=== PATIENT | male | born 1955 | race Caucasian/White ===

== ENCOUNTER 2018-07-03 00:11 | Outpatient (CLI) | payer BC, SELFPAY ==
--- NOTE | 2018-07-03 08:05 | DI.RAD_ITS ---
SYMPTOM/DIAGNOSIS: CALCIUM OXALATE MONO, N20.0 KUB: Comparison is made with 05/03/14. There are several stones seen in the lower half of the left kidney consistent with nephrolithiasis. The right kidney is largely obscured by overlying bowel. No other renal stones are present. There are phleboliths seen in the pelvis. No calcifications are seen along the expected course of the ureters. There is a moderate amount of retained stool throughout the colon. Degenerative changes are seen in the spine. Calcification projected between the 11th and 12th ribs medially on the left is consistent with a left adrenal calcification seen on the CT scan from 05/03/13. IMPRESSION: Left nephrolithiasis.
== END 2018-07-03 00:31 ==
PROVIDERS: PCP Family Medicine; Visit Provider Urology
DX: N20.0 Calculus of kidney (principal)
CPT/HCPCS: 74018

== ENCOUNTER 2018-07-04 08:41 | Outpatient (CLI) | payer BC, SELFPAY ==
[2018-07-05 10:58] LABS: PSA, Screening 1.8 ng/ml (0-4.5)
== END 2018-07-04 09:01 ==
PROVIDERS: PCP Family Medicine; Visit Provider Urology
DX: Z12.5 Encounter for screening for malignant neoplasm of prostate (principal)
CPT/HCPCS: 36415; 84153

== ENCOUNTER 2018-10-04 11:22 | Outpatient (CLI) | payer BC, SELFPAY ==
[2018-10-04 12:18] LABS: ALT 46 U/L (12-78); AST 24 U/L (15-37); Albumin 4.1 g/dL (3.4-5.0); Alkaline Phosphatase 114 U/L (46-116); Anion Gap 9.9 mmol/L (3-11); BUN 23 mg/dL (7-18); Bilirubin, Total 0.6 mg/dL (0.2-1.0); CO2 27.1 mmol/L (21.0-32.0); CREATININE 1.26 mg/dL (0.70-1.30); Chloride 102 mmol/L (98-107); Cholesterol 170 mg/dL (50-200); Estimated GFR 57.62 (mL/min/1.73m2); Glucose 96 mg/dL (70-100); HDL Cholesterol 48 mg/dL (40-60); LDL CHOLESTEROL 104 mg/dL (<100); Potassium 4.7 mmol/L (3.5-5.1); Sodium 139 mmol/L (136-145); Total Protein 7.2 g/dL (6.4-8.2); Triglyceride 95 mg/dL (30-150)
== END 2018-10-04 11:42 ==
PROVIDERS: PCP Family Medicine; Visit Provider Family Medicine
DX: E78.5 Hyperlipidemia, unspecified (principal)
CPT/HCPCS: 36415; 80053; 80061; 83721

== ENCOUNTER → 2019-07-03 08:18 | Outpatient (BNVA) | payer MEDICARE, OTHER, SELFPAY | PROVIDERS: PCP Family Medicine; Referring Provider Family Medicine; Visit Provider Urology | DX: R69 Illness, unspecified ==

== ENCOUNTER 2019-07-03 15:07 | Outpatient (CLI) | payer OTHER, SELFPAY ==
--- NOTE | 2019-07-03 09:14 | DI.RAD_ITS ---
EXAM: XR ABDOMEN FLAT PLATE INDICATION: monitor stone burden, kidney stones, calcium oxalate monohydrate, N20.0. COMPARISON: No exams were available for comparison TECHNIQUE: 2D digital imaging was performed. FINDINGS: There are 2 stones visible at the lower pole of the left kidney, unchanged from the previous exam of 03 July 2018. No new calcifications are seen. The bowel gas pattern is unremarkable. IMPRESSION: Stable left nephrolithiasis.
== END 2019-07-03 15:27 ==
PROVIDERS: PCP Family Medicine; Visit Provider Urology
DX: N20.0 Calculus of kidney (principal)
CPT/HCPCS: 99213; 74018

== ENCOUNTER 2020-01-07 07:23 | Outpatient (CLI) | payer OTHER, SELFPAY ==
[2020-01-11 20:11] LABS: SARS-CoV-2 RNA Undetected (Undetected); SARS-CoV-2 Specimen Source Nasopharynx
== END 2020-01-07 07:43 ==
PROVIDERS: PCP Family Medicine; Visit Provider Family Medicine
DX: Z11.59 Encounter for screening for other viral diseases (principal)
CPT/HCPCS: U0003

== ENCOUNTER 2020-01-10 02:46 | Outpatient (CLI) | payer OTHER, SELFPAY ==
[2020-01-10 14:22] LABS: ALT 41 U/L (16-63); AST 27 U/L (15-37); Albumin 4.4 g/dL (3.4-5.0); Alkaline Phosphatase 103 U/L (46-116); Anion Gap 11.5 mmol/L (3-11); BUN 25 mg/dL (7-18); Bilirubin, Total 0.6 mg/dL (0.2-1.0); CO2 25.5 mmol/L (21.0-32.0); CREATININE 1.31 mg/dL (0.70-1.30); Calcium 9.5 mg/dL (8.5-10.1); Chloride 102 mmol/L (98-107); Estimated GFR 54.91 (mL/min/1.73m2); Glucose 101 mg/dL (74-106); Potassium 4.9 mmol/L (3.5-5.1); Sodium 139 mmol/L (136-145); Total Protein 7.4 g/dL (6.4-8.2)
== END 2020-01-10 03:06 ==
PROVIDERS: PCP Family Medicine; Visit Provider Family Medicine
DX: E78.5 Hyperlipidemia, unspecified (principal)
CPT/HCPCS: 36415; 80053

== ENCOUNTER 2020-03-11 07:23 | Outpatient (CLI) | payer OTHER, SELFPAY ==
[2020-03-13 15:18] LABS: Patient Race White; SARS-CoV-2 RNA Undetected (Undetected); SARS-CoV-2 Specimen Source Nasopharynx
== END 2020-03-11 07:43 ==
PROVIDERS: PCP Family Medicine; Visit Provider Family Medicine
DX: Z11.59 Encounter for screening for other viral diseases (principal)
CPT/HCPCS: U0003

== ENCOUNTER 2020-08-06 01:58 | Outpatient (CLI) | payer OTHER, SELFPAY ==
--- NOTE | 2020-08-06 09:14 | DI.RAD_ITS ---
EXAM: 2D digital imaging was performed. CLINICAL HISTORY: f/u kidney stone, n20.0. COMPARISON: CT ABD PELVIS WITH CONTRAST from 05/03/2013 CT ABD PELVIS WITH CONTRAST from 05/03/2013 CR XR ABDOMEN FLAT PLATE from 07/03/2019 TECHNIQUE: Supine views of the abdomen performed. FINDINGS: BOWEL GAS PATTERN: Nondistended. CALCIFICATIONS: Calcifications projected both the upper and lower pole the left kidney. The right ki dney is partially obscured by the colon. OSSEOUS STRUCTURES: Degenerative disc changes. Degenerative changes of the hips, left greater than r ight. No organomegaly. IMPRESSION: 1. Nonobstructive bowel gas pattern. 2. Multiple stones left kidney. DATA REPOSITORY: RADIATION DOSE DELIVERED:
== END 2020-08-06 01:59 ==
PROVIDERS: PCP Family Medicine; Visit Provider Urology
DX: N20.0 Calculus of kidney (principal)
CPT/HCPCS: 74018

== ENCOUNTER 2021-01-27 11:58 | Outpatient (REF) | payer OTHER, SELFPAY ==
[2021-01-28 15:31] LABS: COVID-19 RT-PCR UVMMC Result Negative (Negative)
== END 2021-01-27 11:59 | disposition home or self-care (01) ==
LOC: NCHCN 11:58
PROVIDERS: PCP Family Medicine; Visit Provider Nurse Practitioner Family
DX: Z20.822 Contact with and (suspected) exposure to COVID-19 (principal)
CPT/HCPCS: U0003

== ENCOUNTER 2021-02-20 02:41 | Outpatient (CLI) | payer OTHER, SELFPAY ==
[2021-02-20 09:55] LABS: ALT 45 U/L (16-63); AST 23 U/L (15-37); Albumin 4.4 g/dL (3.4-5.0); Alkaline Phosphatase 109 U/L (46-116); Anion Gap 9.6 mmol/L (3-11); BUN 20 mg/dL (7-18); Bilirubin, Total 0.4 mg/dL (0.2-1.0); CO2 26.4 mmol/L (21.0-32.0); CREATININE 1.3 mg/dL (0.70-1.30); Calculated LDL 117 mg/dL (<100); Chloride 105 mmol/L (98-107); Cholesterol 184 mg/dL (<200); Estimated GFR 55.06 (mL/min/1.73m2); Glucose 118 mg/dL (74-106); HDL Cholesterol 48 mg/dL (40-60); Potassium 4.7 mmol/L (3.5-5.1); Sodium 141 mmol/L (136-145); Total Protein 7.2 g/dL (6.4-8.2); Triglyceride 98 mg/dL (<150)
[2021-02-20 10:07] LABS: Uric Acid 7.9 mg/dL (3.5-7.2)
[2021-02-23 11:20] LABS: HIV-1/2 Ag & Ab Screen Negative (Negative)
[2021-02-23 11:28] LABS: Hepatitis C Ab w Rflx HCV PCR Negative (Negative)
== END 2021-02-20 02:42 | disposition home or self-care (01) ==
LOC: LBO 02:42
PROVIDERS: PCP Family Medicine; Visit Provider Family Medicine
DX: M10.9 Gout, unspecified; E78.5 Hyperlipidemia, unspecified; N18.9 Chronic kidney disease, unspecified; Z11.3 Encounter for screening for infections with a predominantly sexual mode of transmission
CPT/HCPCS: 36415; 80053; 80061; 86803; 87389; 84550

== ENCOUNTER 2021-08-03 01:29 | Outpatient (CLI) | payer MEDICARE, SELFPAY ==
--- NOTE | 2021-08-03 07:00 | DI.RAD_ITS ---
Exam(s) XR ABDOMEN FLAT PLATE EXAM: XR ABDOMEN FLAT PLATE CLINICAL HISTORY: monitoring kidney stones,h/o renal calculi,z87.442. TECHNIQUE: 2D digital imaging was performed. COMPARISON: CR XR ABDOMEN FLAT PLATE from 08/06/2020 FINDINGS: Bowel gas pattern is nonspecific. Previously described left renal calculi are again noted and appear unchanged in size and position. There appears to be a possible tiny calculus in the opposite-right kidney. There are no obvious radiopaque calculi seen along the course of the ureters. Phleboliths are again noted in the both sides of pelvis. IMPRESSION: Multiple stable appearing calculi in left kidney. Possible tiny calculus in the right kidney. No obvious radiopaque calculi seen in the ureters. DATA REPOSITORY: RADIATION DOSE DELIVERED:
== END 2021-08-03 01:49 ==
PROVIDERS: PCP Family Medicine; Visit Provider Nurse Practitioner Gerontology
DX: N20.0 Calculus of kidney (principal); Z87.442 Personal history of urinary calculi
CPT/HCPCS: 74018

== ENCOUNTER → 2021-08-27 13:30 | Outpatient (BNVA) | payer MEDICARE, SELFPAY | PROVIDERS: PCP Family Medicine; Referring Provider Family Medicine; Visit Provider Nurse Practitioner Gerontology | DX: N40.0 Benign prostatic hyperplasia without lower urinary tract symptoms (principal); N20.0 Calculus of kidney | CPT/HCPCS: 99213 ==

== ENCOUNTER 2022-02-18 03:27 | Outpatient (CLI) | payer MEDICARE, SELFPAY ==
[2022-02-18 12:17] LABS: ALT 59 U/L (16-63); AST 31 U/L (15-37); Albumin 4.1 g/dL (3.4-5.0); Alkaline Phosphatase 105 U/L (46-116); Anion Gap 7.4 mmol/L (3-11); BUN 22 mg/dL (7-18); Bilirubin, Total 0.5 mg/dL (0.2-1.0); CO2 26.6 mmol/L (21.0-32.0); CREATININE 1.3 mg/dL (0.70-1.30); Calcium 9.2 mg/dL (8.5-10.1); Chloride 103 mmol/L (98-107); Glucose 137 mg/dL (74-106); Potassium 4.3 mmol/L (3.5-5.1); Sodium 137 mmol/L (136-145); Total Protein 7.6 g/dL (6.4-8.2)
[2022-02-18 22:56] LABS: PSA, Screening 2.2 ng/mL (<=4.5)
== END 2022-02-18 03:28 | disposition home or self-care (01) ==
LOC: LBO 03:27
PROVIDERS: PCP Family Medicine; Visit Provider Family Medicine
DX: N18.9 Chronic kidney disease, unspecified (principal); N40.1 Benign prostatic hyperplasia with lower urinary tract symptoms; Z12.5 Encounter for screening for malignant neoplasm of prostate
CPT/HCPCS: 36415; 80053; 84153

== ENCOUNTER → 2022-04-19 13:53 | Outpatient (BNVA) | payer MEDICARE, SELFPAY | PROVIDERS: PCP Family Medicine; Referring Provider Family Medicine; Visit Provider Surgery | DX: Z86.010 Personal history of colon polyps (principal); Z12.11 Encounter for screening for malignant neoplasm of colon ==

== ENCOUNTER 2022-04-30 11:23 | Day surgery (SDC) | payer MEDICARE, SELFPAY ==
--- NOTE | 2022-04-29 12:28 | W.PM.DSUDISC ---
Discharge Plan Disposition Patient Disposition: HOME Condition: Good Discharge Details Attending Provider: Huy John Primary Care Provider: Estevan Mahmood Home Meds and New Rx's Prescriptions: No Action bisacodyl [Dulcolax (bisacodyl)] 5 mg tablet,delayed release (DR/EC) 5 mg PO ONCE Qty: 4 0RF Rx Instructions: Take according to provider's instructions for colonoscopy prep. polyethylene glycol 3350 17 gram/dose powder 17 g PO ONCE Qty: 238 0RF Rx Instructions: To be taken as directed by prescriber's office for colonoscopy prep. multivitamin [Daily Multi-Vitamin] 1 EACH tablet 1 ea PO DAILY fluocinonide 0.05 % solution 1 applic TP BID simvastatin 40 mg tablet 40 mg PO DAILY Qty: 90 3RF Rx Instructions: TO LOWER LDL cholesterol UNDER 130 levothyroxine 25 mcg tablet 12.5 mcg PO DAILY Qty: 45 3RF Rx Instructions: 0.5 tablet or as directed for mild hypothyroidism bupropion HCl 300 mg tablet extended release 24 hr 300 mg PO DAILY Qty: 90 3RF Rx Instructions: for mood disturbance allopurinol 100 mg tablet 100 mg PO DAILY Qty: 90 3RF Co Q-10 300 MG capsule 300 mg PO DAILY
--- NOTE | 2022-04-29 20:43 | W.PM.DSUDISC ---
Date of service: 04/30/22 Time of Service: 12:48 Discharge Plan Disposition Patient Disposition: HOME Condition: Good Discharge Details Reason For Visit: colonoscopy Attending Provider: Huy John Primary Care Provider: Estevan Mahmood Home Meds and New Rx's Prescriptions: Continued multivitamin [Daily Multi-Vitamin] 1 EACH tablet 1 ea PO DAILY fluocinonide 0.05 % solution 1 applic TP BID simvastatin 40 mg tablet 40 mg PO DAILY Qty: 90 3RF Rx Instructions: TO LOWER LDL cholesterol UNDER 130 levothyroxine 25 mcg tablet 12.5 mcg PO DAILY Qty: 45 3RF Rx Instructions: 0.5 tablet or as directed for mild hypothyroidism bupropion HCl 300 mg tablet extended release 24 hr 300 mg PO DAILY Qty: 90 3RF Rx Instructions: for mood disturbance allopurinol 100 mg tablet 100 mg PO DAILY Qty: 90 3RF Co Q-10 300 MG capsule 300 mg PO DAILY Discontinued bisacodyl [Dulcolax (bisacodyl)] 5 mg tablet,delayed release (DR/EC) 5 mg PO ONCE Qty: 4 0RF Rx Instructions: Take according to provider's instructions for colonoscopy prep. polyethylene glycol 3350 17 gram/dose powder 17 g PO ONCE Qty: 238 0RF Rx Instructions: To be taken as directed by prescriber's office for colonoscopy prep. Discharge Instructions Instructions: Diverticulosis (DC) Additional Instructions: 1. If tolerated, consume a soft, low fiber diet for 1-2 days. 2[address] Do not drive, drink alcohol, operate machinery, make critical decisions, or do activities that require coordination or balance for 24 hours. 3. Because air was put into your colon during the procedure, expelling air from your rectum (passing gas or farting) is normal. 4. You may not have a bowel movement for 1-3 days because of the colonoscopy prep. This is normal. 5. Go directly to the emergency room if you notice any of the following: Develop chills (warm to touch), or if you have a thermometer and your temperature is above 101 Difficulty breathing or difficultly swallowing Persistent vomiting Severe abdominal pain, other than gas cramps Severe chest pain Black, tarry stools Any bleeding ? exceeding one tablespoon 6. Call your physician if the site where your intravenous was started becomes red, swollen, painful, and warm to touch. 7. Your physician has reviewed your pre-procedure medications. Please continue to take those medications as previously ordered. You will be given specific information/education regarding any changes to your medications before leaving. 8. Follow-up for your next colonoscopy in 10 years Activity:: Activity as Tolerated Diet:: As Tolerated Discharge Orders Discharge Orders: Discharge Order (Routine); Ordered 04/29/22 Ordered By: Huy John DS: Diagnosis Discharge Diagnosis (1) Diverticula of colon: Status: Acute Asessment and Plan: Consume a high-fiber diet and stay well-hydrated.
--- NOTE | 2022-04-29 20:50 | W.COLOREPORT ---
Date of service: 04/30/22 Time of Service: 12:50 Colonoscopy Report Date of procedure: 04/30/22 Pre-op diagnosis general: Routine health maintenance screening colonoscopy Post-op diagnosis procedure note: other (Diverticulosis) Procedure: Screening colonoscopy Surgeon: Huy John Anesthesia Type: General:No Airway Estimated blood loss (mL): 0 Pathology: none sent Complications: None Disposition: same day Indications: Seng is 67 years old, and had a colonoscopy in the past with tubular adenomas. He is following up for another routine screening colonoscopy for basic health maintenance Prep: Miralax/Dulcolax Procedure Start Time: 12:19 Procedure End Time: 12:38 Retraction Time: 14 Findings: Sigmoid diverticulosis Procedure Description: After the induction of monitored anesthetic care, and with the patient in left lateral decubitus position, I began by performing an external anorectal exam.? Perineum and skin were normal, as was the anal verge.? There was no evidence of external hemorrhoids.? Next, I performed a digital rectal exam.? I did not appreciate any abnormal findings.? Next, I advanced a colonoscope into the rectal vault.? I performed retroflexion.? I did not see signs of pathologic internal hemorrhoids.? Using insufflation, I then advanced the colonoscope beyond the rectal folds and into the sigmoid colon before advancing towards the cecum.? There was moderate sigmoid diverticulosis. the quality of the prep was excellent.? The scope was noted to be in the cecum by identification of the ileocecal valve and appendiceal orifice.? I then began withdrawing the colonoscope using repeated irrigation as necessary for full evaluation of the colonic mucosa. ?Once the scope was withdrawn to the level of the rectum, great care was taken to examine portions of the rectal folds.? Finally, the scope was withdrawn and the patient was brought to the same-day surgery recovery unit as the anesthetic wore off. ?The findings and instructions were shared with the patient prior to discharge.
[2022-04-30 11:48] VITALS: BP 144/89; PULSE 61; RESP 16; TEMP 36.5; O2SAT 96
--- NOTE | 2022-04-30 11:58 | W.ANESPRE ---
General Info Date of Service Date Performed: 04/30/22 Height: 5 ft 10.5 in Weight: 90.3 kg Body Mass Index (BMI): 28.1 Surgical Procedure: Operation Date: 04/30/22 12:05 Proposed Procedure Side Surgeon jorge John MD Meds Allergies and Home Medications Allergies Allergy/AdvReac Type Severity Reaction Status Date / Time No Known Allergies Allergy Verified 04/30/22 11:47 Home Medication Medication Instructions Recorded coenzyme Q10 300 mg capsule (Co 300 mg PO DAILY 10/19/16 Q-10) multivitamin (Daily Multi-Vitamin 1 ea PO DAILY 10/10/17 tablet) fluocinonide 0.05 % topical 1 applic topical BID 03/23/18 solution simvastatin 40 mg tablet 40 mg PO DAILY #90 tabs 03/09/22 bupropion HCl 300 mg 24 hr tablet, 300 mg PO DAILY #90 tab-caps 03/16/22 extended release levothyroxine 25 mcg tablet 12.5 mcg PO DAILY #45 tab-caps 03/16/22 allopurinol 100 mg tablet 100 mg PO DAILY #90 tabs 04/19/22 Current Visit Medications: Current Medications Generic Name Dose Route Start Last Admin Trade Name Freq PRN Reason Stop Dose Admin Hyoscyamine Sulfate 0.125 mg 04/29/22 20:51 Hyoscyamine 0.125 Mg Sl/Oral/Chew SL DIRECTED PRN Ringer's Solution 1,000 mls @ 80 mls/hr 04/30/22 06:00 IV 05/29/22 23:59 INFUSION KARRIE IV Miscellaneous Supplies 1 each 04/30/22 06:00 Iv Access IV 05/29/22 23:59 DIRECTED KARRIE Ondansetron HCl 4 mg 04/29/22 20:51 Ondansetron 4 Mg/2 Ml Vial IVP Q4H PRN PRN Nausea / Vomiting Sodium Chloride 0 ml 04/30/22 06:00 Normal Saline Flush 10 Ml Syr IV 05/29/22 23:59 PRN PRN Sodium Chloride 0 ml 04/30/22 06:00 Normal Saline 10 Ml Vial IJ 05/29/22 23:59 DIRECTED PRN Sterile Water 0 ml 04/30/22 06:00 Water,Injection,Sterile 10 Ml Vial IJ 05/29/22 23:59 DIRECTED PRN PFSH Active Problems Active Problems: Problem Status Onset Code Prediabetes R73.03 Encounter for screening for malignant neoplasm of colon Z12.11 Hyperuricemia E79.0 Gout M10.9 Chronic kidney disease N18.9 Benign localized prostatic hyperplasia with lower urinary tract symptoms (LUTS) N40.1 Depressive disorder 01/06/10 F32.9 Tubular adenoma of colon 10/22/16 D12.6 Other specified disorder of kidney and ureter 01/06/10 N28.89 Psoriasis 02/25/11 L40.9 Obstructive sleep apnea syndrome 02/27/13 G47.33 Other psoriasis 02/25/11 L40.8 Obesity, unspecified 07/11/05 E66.9 Kidney stones, calcium oxalate monohydrate 04/29/14 N20.0 Impaired fasting blood sugar 06/19/15 R73.01 Hyperlipidemia E78.5 Elevated serum creatinine 01/06/10 R79.89 Diverticulitis of intestine K57.92 Acquired hypothyroidism E03.9 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 Surgical History Surgical History Colonoscopy - IV Sedation (07/20/06) Colonoscopy - MAC (10/22/16) Extracorporeal shock wave lithotripsy (05/17/13) Dr Watkins bilateral nephrolithiasis Repair of inguinal hernia (07/05/07) RI W/ MESH Repair of umbilical hernia (11/10/16) Dr Maxwell, [facility] Tobacco Smoking/Tobacco Use Status: Never Passive smoking exposure: No Alcohol Alcohol Intake: current Alcohol intake frequency: a few times a month Alcohol type: wine and hard liquor Substance Use Substance use: Never Substance use type: does not use Vital Signs and Lab Results Vital Signs Most Recent Vital Signs in EMR: Most Recent Vital Signs Temp Pulse Resp BP Pulse Ox 36.5 C 61 16 144/89 H 96 04/30/22 11:48 04/30/22 11:48 04/30/22 11:48 04/30/22 11:48 04/30/22 11:48 Lab Results Blood Type / Crossmatch: No Data to Display Complete Blood Count: No Data to Display Complete Metabolic Panel: No Data to Display Liver Function Panel: No Data to Display Coagulation Panel: No Data to Display Cardiac Panel: No Data to Display Arterial Blood Gas: No Data to Display Venous Blood Gas: No Data to Display Pancreas Panel: No Data to Display Thyroid Panel: No Data to Display Infectious Disease: No Data to Display Blood Cultures: No Data to Display Toxicology Panel: No Data to Display Anesthesia Assessment and Plan Anesthesia History Personal History: No History of Anesthesia Complications Family History: No Family History of Anesthesia Complications Exercise Tolerance Exercise Tolerance: Metabolic Equivalents>4 Pertinent Negatives Pertinent Negatives: No Symptoms of GERD, No Major Cardiovascular Symptoms or Complaints and No Major Pulmonary Symptoms or Complaints Cardiac & Pulmonary Exam Cardiac Exam: Normal S1/S2 Heart Sounds Pulmonary Exam: Clear Bilateral Breath Sounds Implantable Cardiac Device Does patient have a Pacemaker or an ICD?: No Airway Exam Known Difficult Airway: No Mallampati Class: 2 Mouth Opening: Normal (> 3cm) Thyromental Distance: Greater than 3 cm Neck Range of Motion: Full ROM Neck Circumference: Normal Teeth Condition: Normal Dentition ASA Classification ASA Score: ASA 2 Emergency Case?: No NPO Status NPO Status: NPO Clears >2 hours, Solids >8 hours Anesthesia Plan Resuscitation Status: Full Code Anesthesia Technique: General Anesthesia Airway Planned: Natural Airway Monitors Used: Standard Monitors
[2022-04-30] MEDS: Lactated Ringers 1,000 ML 80 ML IV (12:00)
[2022-04-30 12:01] VITALS: BMI 28.1
[2022-04-30 12:45] VITALS: BP 116/88; PULSE 64; RESP 18; TEMP 36; O2SAT 97
[2022-04-30 13:06] VITALS: BP 137/81; PULSE 54; RESP 18; TEMP 36.5; O2SAT 98
--- NOTE | 2022-04-30 13:29 | W.ANESPOSTOP ---
Postoperative Evaluation Date, Time and Location Date Performed: 04/30/22 Time Performed: 12:55 Patient Location: Day Surgery Unit Vital Signs Most Recent Imported Vital Signs: Most Recent Vital Signs Temp Pulse Resp BP Pulse Ox 36.5 C 54 L 18 137/81 98 04/30/22 13:06 04/30/22 13:06 04/30/22 13:06 04/30/22 13:06 04/30/22 13:06 Pain Score Most Recent Pain Score: Most Recent Pain Score Pain Level 0 04/30/22 12:45 Assessment Mental Status: Awake (Alert & Oriented to Patient Baseline) Airway and Respiratory Function: Patent airway with normal (patient baseline) respiratory exam Cardiovascular Function: Hemodynamically Stable Hydration Status: Adequately Hydrated Nausea & Vomiting: No Nausea or Vomiting Pain: Pt. Denies Any Pain Peripheral Nerve Block: Patient did not receive a nerve block
== END 2022-04-30 13:20 | disposition home or self-care (01) ==
PROVIDERS: PCP Family Medicine; Visit Provider Surgery
PROC: 0DJD8ZZ Inspection of Lower Intestinal Tract, Via Natural or Artificial Opening Endoscopic (ICD-10-PCS; CPT 45378; principal; 2022-04-30 12:00)
DX: Z12.11 Encounter for screening for malignant neoplasm of colon (principal); K57.30 Diverticulosis of large intestine without perforation or abscess without bleeding; Z86.010 Personal history of colon polyps
CPT/HCPCS: G0105

== ENCOUNTER 2022-09-20 01:18 | Outpatient (CLI) | payer MEDICARE, SELFPAY ==
--- NOTE | 2022-09-20 09:09 | DI.RAD_ITS ---
Exam(s) XR ABDOMEN FLAT PLATE EXAM: 2D digital imaging was performed. CLINICAL HISTORY: monitoring kidney stones,h/o renal calculi, z87.442. COMPARISON: CR XR ABDOMEN FLAT PLATE from 08/03/2021 TECHNIQUE: Supine views of the abdomen performed. FINDINGS: Stool in ascending and transverse colon obscures visualization of the right kidney. Multiple small c alcifications are noted in the left kidney greater at the lower pole. Valgus para is unremarkable. Degenerative changes noted in the spine and hips. IMPRESSION: 1. Nonobstructive bowel gas pattern. 2. Multiple small left renal calculi. DATA REPOSITORY: RADIATION DOSE DELIVERED:
== END 2022-09-20 01:38 ==
LOC: DI 01:18
PROVIDERS: PCP Family Medicine; Visit Provider Nurse Practitioner Gerontology
DX: N20.0 Calculus of kidney (principal); Z87.442 Personal history of urinary calculi
CPT/HCPCS: 74018

== ENCOUNTER → 2022-09-22 12:46 | Outpatient (BNVA) | payer MEDICARE, SELFPAY | PROVIDERS: PCP Family Medicine; Visit Provider Nurse Practitioner Gerontology | DX: N20.0 Calculus of kidney (principal) | CPT/HCPCS: 99213 ==

== ENCOUNTER 2023-04-04 04:58 | Outpatient (CLI) | payer MEDICARE, SELFPAY ==
[2023-04-04 16:11] LABS: Anion Gap 9.9 mmol/L (3-11); BUN 16 mg/dL (7-18); CO2 25.1 mmol/L (21.0-32.0); CREATININE 1.1 mg/dL (0.70-1.30); Calcium 9.2 mg/dL (8.5-10.1); Chloride 103 mmol/L (98-107); Estimated GFR 72.67 (mL/min/1.73m2); Glucose 95 mg/dL (74-106); Potassium 3.9 mmol/L (3.5-5.1); Sodium 138 mmol/L (136-145)
== END 2023-04-04 04:59 | disposition home or self-care (01) ==
LOC: LBO 04:58
PROVIDERS: PCP Family Medicine; Visit Provider Family Medicine
DX: R79.89 Other specified abnormal findings of blood chemistry (principal)
CPT/HCPCS: 36415; 80048; 84153

== ENCOUNTER → 2023-04-22 12:11 | Outpatient (CLI) | payer MEDICARE, SELFPAY ==
--- NOTE | 2023-04-22 | DI.RAD_ITS ---
Exam(s) XR CHEST 2V PA LATERAL EXAM: XR CHEST 2V PA LATERAL CLINICAL HISTORY: Cough R05.8, Lung exam concerning for pneumonia TECHNIQUE: 2D digital imaging was performed. COMPARISON: No exams were available for comparison FINDINGS: HEART: Normal size. Aorta: Not dilated. PULMONARY VASCULATURE: Normal. LUNGS: Clear. PLEURAL SPACE: No pleural effusion or pneumothorax. BONE:Unremarkable for age. IMPRESSION: No acute abnormality. DATA REPOSITORY: RADIATION DOSE DELIVERED:
== END ==
PROVIDERS: PCP Family Medicine; Visit Provider Physician Assistant Medical
DX: R05.8 Other specified cough (principal)
CPT/HCPCS: 71046

== ENCOUNTER → 2023-09-21 01:41 | Outpatient (CLI) | payer MEDICARE, SELFPAY ==
--- NOTE | 2023-09-21 07:00 | DI.RAD_ITS ---
Exam(s) XR ABDOMEN FLAT PLATE EXAM: 2D digital imaging was performed. CLINICAL HISTORY: monitoring renal calculi,Z87.442. COMPARISON: CR XR ABDOMEN FLAT PLATE from 09/20/2022 TECHNIQUE: Supine views of the abdomen performed. FINDINGS: BOWEL GAS PATTERN: Nondistended. Normal quantity of stool. CALCIFICATIONS: Multiple stones are again noted involving the left kidney. The calcifications are mo re apparent compared to the previous exam, consistent with interval increase in size. There is a que stion of a small stone projecting in the mid right kidney. OSSEOUS STRUCTURES: Degenerative changes in the lumbar spine and both hips. OTHER FINDINGS: None. IMPRESSION: 1. Nonobstructive bowel gas pattern. 2. Multiple left renal calculi noted. Question of right renal calculus.. DATA REPOSITORY: RADIATION DOSE DELIVERED:
== END ==
PROVIDERS: PCP Family Medicine; Visit Provider Nurse Practitioner Gerontology
DX: N20.0 Calculus of kidney (principal); Z87.442 Personal history of urinary calculi
CPT/HCPCS: 74018

== ENCOUNTER 2024-03-30 13:19 | Outpatient (CLI) | payer MEDICARE, SELFPAY ==
--- NOTE | 2024-03-30 13:42 | DI.RAD_ITS ---
Exam(s) XR HUMERUS RT XR SHOULDER RT COMPLETE 2+V EXAM: XR SHOULDER RT COMPLETE 2+V CLINICAL HISTORY: M25.511 Pain in RT shoulder. TECHNIQUE: 2D digital imaging was performed. Five views. COMPARISON: CR XR CHEST 2V PA LATERAL from 04/22/2023 CR XR ABDOMEN FLAT PLATE from 09/21/2023 CR XR HUMERUS RT from 03/30/2024 FINDINGS: BONES: No acute fracture is present. No bony destructive lesion is seen. Degenerative spurring at gr eater tuberosity. Smoothly marginated bony densities noted posterior to the olecranon, chronic findi ng. JOINTS: No dislocation present. Mild to moderate degenerative changes at the AC joint and glenohumer al joint. Glenohumeral joint space is maintained. The elbow shows minimal degenerative changes. SOFT TISSUE: Benign appearing calcifications consistent with fat necrosis in the lateral aspect of th e arm. IMPRESSION: Degenerative changes. No acute abnormality. DATA REPOSITORY: RADIATION DOSE DELIVERED:
== END 2024-03-30 13:39 ==
PROVIDERS: PCP Family Medicine; Visit Provider Physician Assistant Medical
DX: M19.011 Primary osteoarthritis, right shoulder (principal)
CPT/HCPCS: 73030; 73060

== ENCOUNTER → 2024-04-03 08:07 | Outpatient (BNVA) | payer MEDICARE, SELFPAY | PROVIDERS: PCP Family Medicine; Referring Provider Family Medicine; Visit Provider Student in an Organized Health Care Education/Training Program | DX: S46.211A Strain of muscle, fascia and tendon of other parts of biceps, right arm, initial encounter (principal); X58.XXXA Exposure to other specified factors, initial encounter; M12.811 Other specific arthropathies, not elsewhere classified, right shoulder | CPT/HCPCS: 99213 ==

== ENCOUNTER 2024-05-17 03:36 | Outpatient (CLI) | payer MEDICARE, SELFPAY ==
[2024-05-17 07:43] LABS: Hemoglobin A1C 6.2 % (<5.7)
[2024-05-17 07:50] LABS: ALT 50 U/L (16-63); AST 30 U/L (15-37); Albumin 3.8 g/dL (3.4-5.0); Alkaline Phosphatase 109 U/L (46-116); Anion Gap 7.6 mmol/L (3-11); BUN 18 mg/dL (7-18); Bilirubin, Total 0.38 mg/dL (0.2-1.0); CO2 24.4 mmol/L (21.0-32.0); CREATININE 1.3 mg/dL (0.70-1.30); Calcium 9.3 mg/dL (8.5-10.1); Chloride 107 mmol/L (98-107); Glucose 134 mg/dL (74-106); Potassium 4.5 mmol/L (3.5-5.1); Sodium 139 mmol/L (136-145); Total Protein 7.1 g/dL (6.4-8.2)
[2024-05-17 17:47] LABS: PSA, Screening 1.9 ng/mL (<=6.5)
== END 2024-05-17 03:37 | disposition home or self-care (01) ==
LOC: LBO 03:36
PROVIDERS: PCP Family Medicine; Referring Provider Family Medicine; Visit Provider Family Medicine
DX: E11.9 Type 2 diabetes mellitus without complications (principal); Z80.42 Family history of malignant neoplasm of prostate; N18.9 Chronic kidney disease, unspecified
CPT/HCPCS: 36415; 80053; 84153; 83036

== ENCOUNTER 2024-10-01 01:25 | Outpatient (CLI) | payer MEDICARE, SELFPAY ==
--- NOTE | 2024-10-01 08:15 | DI.RAD_ITS ---
Exam(s) XR ABDOMEN FLAT PLATE EXAM: 2D digital imaging was performed. CLINICAL HISTORY: monitoring renal calculi,Z87.442. COMPARISON: CR XR ABDOMEN FLAT PLATE from 09/20/2022 CR XR ABDOMEN FLAT PLATE from 09/21/2023 TECHNIQUE: Supine views of the abdomen performed. FINDINGS: BOWEL GAS PATTERN: Nondistended. CALCIFICATIONS: Several small stones are again noted in the mid to lower pole of the left kidney. No right renal calculi are identified. Phleboliths are present in the. OSSEOUS STRUCTURES: Unremarkable for age. OTHER FINDINGS: None. IMPRESSION: 1. Nonobstructive bowel gas pattern. 2. Stable appearance of left renal calculi. DATA REPOSITORY: RADIATION DOSE DELIVERED:
== END 2024-10-01 01:45 ==
LOC: DI 01:25
PROVIDERS: PCP Family Medicine; Visit Provider Nurse Practitioner Gerontology
DX: Z87.442 Personal history of urinary calculi (principal); Z09 Encounter for follow-up examination after completed treatment for conditions other than malignant neoplasm
CPT/HCPCS: 74018

== ENCOUNTER → 2024-10-04 13:00 | Outpatient (BNVA) | payer MEDICARE, SELFPAY | PROVIDERS: PCP Family Medicine; Visit Provider Nurse Practitioner Gerontology | DX: Z87.442 Personal history of urinary calculi (principal); N20.0 Calculus of kidney | CPT/HCPCS: 99213 ==

== ENCOUNTER 2025-05-13 02:06 | Outpatient (CLI) | payer MEDICARE, SELFPAY ==
[2025-05-13 14:08] LABS: Hemoglobin A1C 6.7 % (<5.7)
[2025-05-13 15:15] LABS: TSH (W/Ref FT4) 3.82 uIU/mL (0.55-4.78)
[2025-05-13 21:37] LABS: PSA, Screening 1.9 ng/mL (<=6.5)
[2025-05-14 10:47] LABS: Lyme Ab w Rflx to Lyme Confirm Negative (Negative)
[2025-05-15 14:36] LABS: B. miyamotoi PCR Negative (Negative); Babesia divergens/MO-1 Negative (Negative); Ehrlichia muris eauclairensis Negative (Negative)
== END 2025-05-13 02:07 | disposition home or self-care (01) ==
LOC: LBO 02:06
PROVIDERS: PCP Family Medicine; Referring Provider Family Medicine; Visit Provider Family Medicine
DX: E03.9 Hypothyroidism, unspecified (principal); E11.9 Type 2 diabetes mellitus without complications; Z80.42 Family history of malignant neoplasm of prostate; W57.XXXA Bitten or stung by nonvenomous insect and other nonvenomous arthropods, initial encounter
CPT/HCPCS: 36415; 84153; 87798; 83036; 84443; 86618

== ENCOUNTER 2025-06-19 14:39 | Emergency (ER) | payer MEDICARE, SELFPAY ==
[2025-06-19] VITALS (26 sets, daily range): BP systolic 118–151; BP diastolic 62–88; PULSE 55–72; RESP 9–24; TEMP 36.4–36.6; O2SAT 94–98
--- NOTE | 2025-06-19 14:30 | RT.EKG_ITS ---
APPROVED REPORT Exam: Resting ECG Reason for Exam: dizzy Patient Location: E HR:67 bpm ECG Measurements Heart Rate 67 AXIS ND 175 P 57 QRSd 96 QRS 2 QT 422 T 30 QTc 446 Conclusion Sinus rhythm...normal P axis, V-rate 60- 99. No STEMI. No ACS.
--- NOTE | 2025-06-19 15:15 | DI.CT_ITS ---
Exam(s) CT BRAIN NECK CTA EXAM: CT BRAIN NECK CTA CLINICAL HISTORY: dizzy. TECHNIQUE: Imaging Protocol: Axial CT angiography was performed with multi- slice acquisition and multi-planar and/or 3D reconstructions. CONTRAST MATERIAL: Intravenous: Omnipaque 350 contrast volume:70 mL COMPARISON: There are no priors for comparison. FINDINGS: CT Head W/O and W: Ventricles and Extra axial spaces: Normal in size and morphology for the patient's age. Hemorrhage: None. Cerebral parenchyma: There are several areas of decreased attenuation in the white matter most consistent with microvascular ischemic disease. No acute mass effect is identified. Midline shift: None. Brainstem/Cerebellum: Normal. Calvarium: Normal. Visualized Paranasal sinuses/Mastoids: There is mild mucosal thickening in the left sphenoid sinus. Soft Tissues: Unremarkable. Enhancement: Unremarkable. CTA Neck W: Common Carotid: Right: No dissection, occlusion or significant stenosis. There is mild atherosclerotic calcification in the carotid bulb resulting in less than 50 percent stenosis.. Left: No dissection, occlusion or significant stenosis. There is mild atherosclerotic calcification in the carotid bulb resulting in less than 50 percent stenosis. External Carotid: Right: No occlusion or significant stenosis. Left: No occlusion or significant stenosis. Internal Carotid: Right: No dissection, occlusion or significant stenosis. Left: No dissection, occlusion or significant stenosis. Vertebral Artery: Right: No dissection, occlusion or significant stenosis. There is atherosclerotic calcification in the proximal right vertebral artery with less than 50 percent stenosis. Left: No dissection, occlusion or significant stenosis. There is atherosclerotic calcification at the origin of the vertebral artery with less than 50 percent stenosis. Lung Apices: Normal. Bones: Within normal limits for the patient's age. Soft Tissues: Normal. Thyroid gland: Unremarkable. CTA Brain W: Internal Carotid Arteries: Atherosclerotic calcification is present with less than 50 percent stenosis. There is no aneurysm, occlusion or significant stenosis present. Anterior Cerebral Arteries: Right: No aneurysm, occlusion or significant stenosis. Left: No aneurysm, occlusion or significant stenosis. Middle Cerebral Arteries: Right: No aneurysm, occlusion or significant stenosis. Left: No aneurysm, occlusion or significant stenosis. Posterior Cerebral Arteries: Right: No aneurysm, occlusion or significant stenosis. Left: No aneurysm, occlusion or significant stenosis. Vertebral Arteries: There is mild atherosclerotic calcification in the distal vertebral arteries with less than 50 percent stenosis. Right: No aneurysm, occlusion or significant stenosis. Left: No aneurysm, occlusion or significant stenosis. Basilar Artery: No aneurysm, occlusion or significant stenosis. IMPRESSION: 1. No large vessel occlusion or significant stenosis on the CT angiography of the head. 2. No acute intracranial process. Follow-up as clinically appropriate. This may include an MRI of the brain. 3. No occlusion or significant stenosis on the CT angiography of the neck. RADIATION DOSE DELIVERED: 2,373.82mGy.cm Total DLP DATA REPOSITORY: All CT scans at this facility are submitted to the National Radiology Data Registry (NRDR) Dose Index Registry (DIR) with the [employer] ([employer]). RADIATION OPTIMIZATION: All CT scans at this facility use at least one of these dose optimization techniques: automated exposure control; mA and/or kV adjustment per patient size (includes targeted exams where dose is matched to clinical indication); or iterative reconstruction.
--- NOTE | 2025-06-19 15:19 | W.ED.GENAD ---
Discharge Plan Disposition Patient Disposition: Home Condition: Fair Discharge Details Clinical Impression: Vertigo Primary Care Provider: Estevan Mahmood ED Provider: Diego Foley Home Meds and New Rx's Prescriptions: New meclizine 25 mg tablet 25 mg PO BID PRNQty: 10 0RF No Action (DME) Blood Glucose Test Strip See Rx Instructions .ROUTE .MEDSUPPLY Qty: 100 3RF Rx Instructions: As directed to check blood glucose daily. No insulin. Dispense covered brand. (DME) blood-glucose meter Misc See Rx Instructions .ROUTE .MEDSUPPLY Qty: 1 0RF Rx Instructions: As directed to check blood glucose. No insulin. Dispense covered brand. (DME) lancets Misc See Rx Instructions .ROUTE .MEDSUPPLY Qty: 100 3RF Rx Instructions: As directed to check blood glucose daily. No insulin. Dispense covered brand. allopurinol 100 mg tablet 100 mg PO DAILY Qty: 90 3RF bupropion HCl 300 mg tablet extended release 24 hr 300 mg PO DAILY Qty: 90 3RF Rx Instructions: for mood disturbance levothyroxine 25 mcg tablet 12.5 mcg PO DAILY Qty: 45 3RF Rx Instructions: 0.5 tablet or as directed for mild hypothyroidism simvastatin 40 mg tablet 40 mg PO DAILY Qty: 90 3RF Rx Instructions: TO LOWER LDL cholesterol UNDER 130 multivitamin [Daily Multi-Vitamin] 1 EACH tablet 1 ea PO DAILY Co Q-10 300 MG capsule 300 mg PO DAILY Discharge Instructions Instructions: Vertigo ED Stand Alone Forms: Portal Information Referrals: Estevan Mahmood DO [Primary Care Provider, Medicine] - 1 week HPI General Date/Time Provider Initiated Documentation: 06/19/25 14:41. HPI Narrative: This is a 70-year-old male presenting to the emergency department with a chief complaint of dizzy spell. Patient has a baseline history of type 2 diabetes, hypothyroidism, depression, sleep apnea, CKI. Patient states that he was at home preparing food when he suddenly began to feel dizzy. He felt that his balance was off and he had to pegger dobby looms the counter in order not to fall. He did not fall and did not have a syncopal event. He states it had been a normal day prior. No alcohol consumption. No street drugs. He has not had any recent illnesses. No fevers or rash. No cough or congestion. No shortness of breath. No headache or neck pain. No nausea or vomiting. No vision or hearing changes. No confusion or speech changes. He has not had any new or different medications. No medication changes. No supplements. No history of similar. Dizzy spell spontaneously improved and is largely gone. Patient can now ambulate. He states that he also felt a slight discomfort in his chest at 1 point. No palpitations. Patient has difficulty characterizing the discomfort in his chest but states that it was quite mild. Related Data Home Medications ?Medication ?Instructions ?Recorded ?Confirmed coenzyme Q10 300 mg capsule (Co 300 mg PO DAILY 10/19/16 06/19/25 Q-10) multivitamin (Daily Multi-Vitamin 1 ea PO DAILY 10/10/17 06/19/25 tablet) blood-glucose meter #1 ea 10/18/22 06/19/25 lancets #100 ea 10/18/22 06/19/25 blood sugar diagnostic (Blood #100 ea 01/17/23 06/19/25 Glucose Test strips) allopurinol 100 mg tablet 100 mg PO DAILY #90 tabs 05/17/25 06/19/25 bupropion HCl 300 mg 24 hr tablet, 300 mg PO DAILY #90 tab-caps 05/17/25 06/19/25 extended release levothyroxine 25 mcg tablet 12.5 mcg (1/2 x 25 mcg) PO DAILY 05/17/25 06/19/25 #45 tab-caps simvastatin 40 mg tablet 40 mg PO DAILY #90 tabs 05/17/25 06/19/25 meclizine 25 mg tablet 25 mg PO BID PRN #10 tabs 06/19/25 Previous Rx's ?Medication ?Instructions ?Recorded blood-glucose meter #1 ea 10/18/22 lancets #100 ea 10/18/22 blood sugar diagnostic (Blood #100 ea 01/17/23 Glucose Test strips) allopurinol 100 mg tablet 100 mg PO DAILY #90 tabs 05/17/25 bupropion HCl 300 mg 24 hr tablet, 300 mg PO DAILY #90 tab-caps 05/17/25 extended release levothyroxine 25 mcg tablet 12.5 mcg (1/2 x 25 mcg) PO DAILY 05/17/25 #45 tab-caps simvastatin 40 mg tablet 40 mg PO DAILY #90 tabs 05/17/25 meclizine 25 mg tablet 25 mg PO BID PRN #10 tabs 06/19/25 Allergies Allergy/AdvReac Type Severity Reaction Status Date / Time No Known Allergies Allergy Verified 06/19/25 14:46 General Stated Complaint: Dizzy/Sync CORDELIA: 3 Review of Systems All systems reviewed & are unremarkable except as noted in HPI and below Constitutional Constitutional: Reports system reviewed and no additional complaints, except as documented, Denies fever(s), Denies headache(s), Denies weakness and Denies weight loss Eyes Eyes: Denies blurry vision ENT Ears, Nose, Mouth, and Throat: Reports vertigo, Denies headache(s) and Denies sore throat Cardiovascular Cardiovascular: Reports chest pain, Denies syncope, Denies palpitations and Denies dyspnea Respiratory Respiratory: Denies cough, Denies dyspnea and Denies wheezing Gastrointestinal Gastrointestinal: Denies abdominal pain, Denies diarrhea, Denies nausea and Denies vomiting Genitourinary Genitourinary: Denies hematuria and Denies dysuria Musculoskeletal Musculoskeletal: Denies back pain, Denies arthralgias and Denies numbness Neurologic Neurologic: Denies abnormal speech, Reports vertigo, Denies syncope, Denies headache(s), Denies numbness, Denies seizure-like activity, Denies sensory deficit, Denies paresthesias and Denies weakness Psychiatric Psychiatric: Denies suicidal ideation Endocrine Endocrine: Denies palpitations Allergic/Immunologic Allergic/Immunologic: Denies wheezing Exam Const General: no acute distress and well groomed HENMT Mouth: oral mucosae normal and moist mucous membranes Throat: posterior oropharynx normal Eyes Conjunctivae: conjunctivae normal Sclera: sclerae normal Neck Neck: full ROM and No JVD Resp Effort & Inspection: normal respiratory effort Auscultation: clear to auscultation bilaterally Cardio Rate: regular rate Rhythm: regular rhythm Heart Sounds: no murmurs GI Palpation: soft and nontender Skin General skin exam: no rashes or lesions noted Neuro General: patient alert and patient oriented x3 Cranial Nerves: CN's II-XI intact bilaterally Cognition: normal cognition Speech: speech normal Gait: normal gait Motor: muscle tone normal throughout Sensory Exam: no sensory deficits noted Extrem General: normal to inspection and full ROM Psych Appearance: grossly normal Mental Status: mental status grossly normal Speech and Movement: speech and movement normal Affect: normal affect Thought Process: normal Course Vital Signs Vital signs: Vital Signs Temperature 36.4 C L 06/19/25 14:41 Pulse 72 06/19/25 14:41 Respiratory Rate 20 06/19/25 14:41 Blood Pressure 151/88 H 06/19/25 14:41 Pulse Oximetry 94 06/19/25 14:41 Temperature 36.4 C L 06/19/25 14:41 Pulse 72 06/19/25 14:41 Respiratory Rate 20 06/19/25 14:41 Blood Pressure 151/88 H 06/19/25 14:41 Blood Pressure Position Sitting 06/19/25 14:41 Pulse Oximetry 94 06/19/25 14:41 Oxygen Delivery Method Room Air 06/19/25 14:41 Oxygen Flow Rate 0 06/19/25 14:41 Medical Decision Making This is a 70-year-old male presenting to the emergency department with a chief complaint of dizzy spell. The patient was seen and examined by me. Old charts were reviewed and nursing notes were reviewed. Most recent visit in the EMR was an annual wellness visit about a month ago and is unrelated. Patient was provided meclizine. An IV was established and he was maintained on a property assessment monitor. EKG reviewed by me shows a normal sinus rhythm at 67 bpm with no acute changes. No STEMI. Labs are unremarkable. CT angio head and neck are negative. On reexamination the patient reports significant improvement of his symptoms. At this point, suspect a vestibular cause rather than a central cause. Patient will be referred back to his primary care this coming week. He should return for any problems or call if he has questions or concerns. Quality:SDOH Health Related Social Needs: Health related social needs lonely/isolated PFSH All Active Problems (Updated 06/19/25 @ 17:54 by Diego Foley MD) Vertigo (Acute) Presbyopia (Acute) Regular astigmatism, bilateral (Acute) Myopia of both eyes (Acute) Age-related nuclear cataract, bilateral (Acute) Vitreous degeneration, bilateral (Acute) Lipoma of face (Acute) Rotator cuff arthropathy of right shoulder (Acute) Rupture of right proximal biceps tendon (Acute ~02/2024) Family history of prostate cancer in father (Acute) Hammer toe of right foot (Acute) Type II diabetes mellitus (Acute) Diverticula of colon (Acute) Prediabetes (Acute) Encounter for screening for malignant neoplasm of colon (Acute) Hyperuricemia (Acute) Gout (Chronic) Chronic kidney disease (Acute) Benign localized prostatic hyperplasia with lower urinary tract symptoms (LUTS) (Acute) Depressive disorder (Chronic 01/06/10) RADHA VALLECILLO counsellor; 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; step-son, h/o buproprion rx Tubular adenoma of colon (Acute 10/22/16) Other specified disorder of kidney and ureter (Acute 01/06/10) Cr 1.4-1.5 04/2009; EST GFR <60, MINIMAL ABNL Psoriasis (Acute 02/25/11) SMALL PERIANAL AREA; scalp, elbows Obstructive sleep apnea syndrome (Acute 02/27/13) mild; no help CPAP 03/2013; discontinued CPAP, using weight loss and avoiding evening EtOH Other psoriasis (Acute 02/25/11) SMALL PERIANAL AREA Obesity, unspecified (Acute 07/11/05) Kidney stones, calcium oxalate monohydrate (Acute 04/29/14) 95% CaOxalateMono; 5% CaPhos; micro hematuria Impaired fasting blood sugar (Acute 06/19/15) elevated FBS; A1c 6.1, improved to 5.8 03/2017 Hyperlipidemia (Acute) RISK 10% CALC IN 2004; GOAL LDL<130; [id number] prior to rx Elevated serum creatinine (Acute 01/06/10) Cr 1.4-1.5 04/2009; EST GFR <60, MINIMAL ABNL Acquired hypothyroidism (Acute) ? mild TSH 4 Recurrent umbilical hernia with incarceration (Acute) Medical History Folliculitis Sebaceous gland hyperplasia Seborrheic keratoses Diverticulitis of intestine Surgical History Repair of umbilical hernia (11/10/16) Dr Maxwell, [facility] Repair of inguinal hernia (07/05/07) RIH W/ MESH Extracorporeal shock wave lithotripsy (05/17/13) Dr Watkins bilateral nephrolithiasis Colonoscopy - MAC (10/22/16) Colonoscopy - IV Sedation (07/20/06) Family History Mother , [place] 85. Lymph[place] (my[place] infarction) Anxiety Depression Diabetes Cancer Father , [place] 83. [place] (myocardial infarction) DJD (degenerative joint disease) Other Polio Social History Smoking/Tobacco Use Status: Never Second Hand Exposure: No Smoking risk assessment performed?: Yes Alcohol Intake: current Alcohol Intake frequency: a few times a month Alcohol type: wine and hard liquor Drug use: Occasionally Substance use type: marijuana Adopted: No Caregiver/Support person: No Foster care: No Household members: spouse Housing: house Number of Children: 2 number of grandchildren: 1 Communication Needs: Hard of Hearing Education Level: college Details: Bachelor's degree Do you need help understanding health information?: Rarely current occupation: retired Pets and animals: Yes (1) Pets and animals: cat(s) Sexually active: Yes Do you think of yourself as: straight/heterosexual Current gender identity: male What is your relationship status?: How often do you talk on the phone with friends or family?: three or more times per week How often do you get together with friends or relatives?: twice per week Do you belong to any clubs or organized social groups?: no Panel score (0-1 are the most socially isolated patients): 2 What type of physical activity do you participate in: walking, weight lifting and other Details: gardening; elliptical Duration: 30-45 minutes/day Frequency: 5-6 times per week Amber/Buddhism: Jewish Special amber needs: No Seatbelt use: always Helmet use: Yes (N/A) Drive intox 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 Working smoke detector in home: Yes Fire extinguisher in home: Yes Carbon monox detector in home: Yes Do you feel safe at home: Yes Do you feel safe in your relationship?: Yes Victim of physical abuse: No PAWSS Have you Been Recently Intoxicated or Drunk Within the Last 30 days?: No Have you Ever Experienced Previous Episodes of Alcohol Withdrawal?: No Have you ever Experienced Withdrawal Seizures?: No Have you ever Experienced Delirium Tremens(DT)s?: No Have you ever undergone Alcohol Rehabilitation Treatment (i.e, inpt ot outpatient treatment programs)?: No Have you ever Experienced Blackouts?: No Have you ever Combined Alcohol with other Downers within the last 90 days?: No Have you ever Combined Alcohol with any other Substance of Abuse during the last 90 days?: No Positive Blood Alcohol level on Presentation? [PCS.BAL]: No Evidence of Increased Autonomic Activity (i.e. HR>120, tremor, sweating, agitation, nausea)?: No Result: 0
[2025-06-19] MEDS: Meclizine 25 MG TAB PO (15:39)
[2025-06-19 15:45] LABS: HCT 39.0 % (40.0-50.0); HGB 13.4 g/dL (13.5-17.5); MCH 31.8 pg (27.0-33.0); MCHC 34.4 % (32.0-36.0); MCV 93 fL (80-95); MPV 9.6 fL (8.0-11.0); Platelet Count 213 10^3/uL (130-400); RBC 4.21 10^6/uL (4.36-5.78); RDW 12.9 % (11.8-14.1); RDW-SD 43.8 fL; WBC 9.16 10^3/uL (4.4-10.8)
[2025-06-19 16:15] LABS: Anion Gap 8.8 mmol/L (3-11); BUN 27 mg/dL (9-23); CO2 27.2 mmol/L (20.0-31.0); Calcium 9.1 mg/dL (8.3-10.6); Chloride 105 mmol/L (98-107); Glucose 188 mg/dL (74-106); Potassium 3.8 mmol/L (3.5-5.1); Sodium 141 mmol/L (136-145)
[2025-06-19 16:26] LABS: Troponin I < 3 ng/L (<54)
[2025-06-19] MEDS: Omnipaque 350 MG/ML 100 ML BTL IJ (16:54)
[2025-06-19] MEDS: Normal Saline - Diluent 50 ML VIAL IJ (16:54)
== END 2025-06-19 18:22 | disposition home or self-care (01) ==
PROVIDERS: Emergency Provider Emergency Medicine; PCP Family Medicine
DX: R42 Dizziness and giddiness (principal); E11.22 Type 2 diabetes mellitus with diabetic chronic kidney disease; Z60.8 Other problems related to social environment
CPT/HCPCS: 99284; 99285; 36415; 70496; 70498; 80048; 85027; 93005; 84484; 93010; J3490